=== PATIENT | female | born 1985 | race American Indian/Alaskan Native ===

== ENCOUNTER 2022-03-12 12:26 | Emergency (ER) | payer MEDICARE, MEDICAID ==
[~2022-03-12] VITALS: Ht 167.6 cm; Wt 61.0 kg
[2022-03-12 12:52] VITALS: BP 121/86
== END 2022-03-12 16:29 | disposition left against medical advice (07) ==
LOC: ER 12:26
DX: Z53.21 Procedure and treatment not carried out due to patient leaving prior to being seen by health care provider (principal)

== ENCOUNTER 2022-06-23 18:20 | Emergency (ER) | payer MEDICARE, MEDICAID ==
[~2022-06-23] VITALS: Ht 167.6 cm; Wt 80.0 kg
[2022-06-23] MEDS ORDERED: CEPH500C2 MT (22:55)
[2022-06-23] MEDS ORDERED: CEPHALEXIN 250MG CAPSULE PO ONE (23:00)
[2022-06-23] MEDS ORDERED: IBUPROFEN 600MG TABLET PO ONE (23:00)
[2022-06-23 23:13] VITALS: BP 114/78
== END 2022-06-23 23:16 | disposition home or self-care (01) ==
LOC: EDSEX 18:20 → ER 18:20
DX: S40.862A Insect bite (nonvenomous) of left upper arm, initial encounter (principal); L03.112 Cellulitis of left axilla; W57.XXXA Bitten or stung by nonvenomous insect and other nonvenomous arthropods, initial encounter; Y93.89 Activity, other specified; Y92.89 Other specified places as the place of occurrence of the external cause
CPT/HCPCS: 99283

== ENCOUNTER 2023-10-18 18:25 | Emergency (ER) | payer MEDICARE, MEDICAID ==
[~2023-10-18] VITALS: Ht 167.6 cm; Wt 52.0 kg
[~2023-10-18 18:25] MED LIST: CEPH500C2 MT
[2023-10-18 18:41] VITALS: TEMP 98.8; O2SAT 100
[2023-10-18] MEDS ORDERED: IBUPROFEN 600MG TABLET PO STA (21:13)
[2023-10-18] MEDS ORDERED: ACET-2708 MT (21:48)
[2023-10-18 22:58] VITALS: BP 119/68; PULSE 106; RESP 16
[2023-10-18] MEDS ORDERED: IBUPROFEN 600MG TABLET PO NR (23:00)
== END 2023-10-18 22:16 | disposition home or self-care (01) ==
LOC: ER 18:25
DX: M54.2 Cervicalgia (principal); M54.50 Low back pain, unspecified; M25.511 Pain in right shoulder; Y08.89XA Assault by other specified means, initial encounter; Y93.89 Activity, other specified; Y92.89 Other specified places as the place of occurrence of the external cause; Y99.8 Other external cause status
CPT/HCPCS: 71046; 72100; 99284

== ENCOUNTER 2023-11-05 13:55 | Emergency (ER) | payer MEDICARE, MEDICAID ==
[~2023-11-05] VITALS: Ht 167.6 cm; Wt 78.0 kg
[~2023-11-05 13:55] MED LIST changes: +ACET-2708 MT
[2023-11-05 14:18] VITALS: O2SAT 99
[2023-11-05 18:06] VITALS: BP 129/84; PULSE 85; RESP 18; TEMP 97.8
== END 2023-11-05 18:08 | disposition home or self-care (01) ==
LOC: ER 13:55
DX: M79.644 Pain in right finger(s) (principal); M54.50 Low back pain, unspecified; M85.60 Other cyst of bone, unspecified site
CPT/HCPCS: 72100; 73080; 73130; 99284